=== PATIENT | male | born 1985 | race Caucasian/White ===

== ENCOUNTER 2020-02-17 23:50 | Inpatient (IN) | payer OTHER ==
[~2020-02-17] VITALS: Ht 188 cm; Wt 122.5 kg
[2020-02-17 23:55] VITALS: BP_SYST 119
[2020-02-18] VITALS (7 sets, daily range): BP systolic 117–131
--- NOTE | 2020-02-18 00:05 | NUR ---
Patient to ER bed 2 to gown for evaluation. Side rails up. Report given to November.
--- NOTE | 2020-02-18 00:06 | NUR ---
Patient came to ER. C/O abdominal pain x today. Patient states " abdominal pain one hour ago, no diarrhea or constipation. " Hx Gastritis x 4 years ago A/O,X4, Epigastric pain, pain rate 10/10.
--- NOTE | 2020-02-18 00:09 | NUR ---
ER at bedside examining patient.
[2020-02-18] MEDS ORDERED: MAG-AL HYDROX/SIMETH 30 ML UDC PO ONE (00:15)
[2020-02-18] MEDS ORDERED: LIDOCAINE VISCOUS 2%, 15 ML UDC MM ONE (00:15)
[2020-02-18] MEDS ORDERED: DICYCLOMINE HCL 10 MG/5 ML SOLUTION PO ONE (00:15)
[2020-02-18] MEDS ORDERED: KETOROLAC TROMETHAMINE 60 MG/2 ML VIAL IM ONE (00:15)
--- NOTE | 2020-02-18 01:27 | NUR ---
US at bedside.
[2020-02-18 02:06] LABS: BASOPHILS % (AUTO) 0.2 % (0.0-2.0); EOSINOPHILS # (AUTO) 0.1 K/uL (0.0-0.4); EOSINOPHILS % (AUTO) 1.2 % (0.0-4.0); HEMATOCRIT 44.4 % (36-54); LYMPHOCYTES # (AUTO) 1.1 K/uL (1.0-5.5); LYMPHOCYTES % (AUTO) 10.7 % (20.5-51.5); MEAN CORPUSCULAR HEMOGLOBIN 30 pg (27-31); MEAN CORPUSCULAR HGB CONC 34 % (32-36); MEAN CORPUSCULAR VOLUME 88 fL (79.0-98.0); MONOCYTES # (AUTO) 0.8 K/uL (0.0-1.0); MONOCYTES % (AUTO) 8.4 % (1.7-9.3); NEUTROPHILS % (AUTO) 79.5 % (40.0-70.0); PLATELET COUNT (AUTO) 189 K/uL (130-430); RED BLOOD CELL COUNT(AUTO) 5.02 MIL/uL (4.2-6.2); RED CELL DISTRIBUTION WIDTH 14.2 % (9.0-15.0)
[2020-02-18 02:19] LABS: CALCIUM 9.2 mg/dL (8.4-11.0); CREATININE 1.34 mg/dL (0.55-1.30); POTASSIUM 3.9 mmol/L (3.5-5.1)
[2020-02-18 02:24] LABS: ALBUMIN 3.6 g/dL (3.4-4.8); TOTAL BILIRUBIN 0.4 mg/dL (0.0-1.0)
[2020-02-18] MEDS ORDERED: MORPHINE 4 MG/ML INJ. SYRINGE IVP ONE (02:45)
[2020-02-18] MEDS ORDERED: NACL 0.9% 1,000 ML IV ONE (02:45)
--- NOTE | 2020-02-18 03:33 | NUR ---
# 22 gauge angiocath placed to left hand. Use of asceptic technique. Opsite placed over site. Blood return noted. Blood for lab drawn from site. Flushed with 10 cc of normal saline. No evidence of infiltration noted. Patient tolerated well.
[2020-02-18 03:52] LABS: BILIRUBIN,URINE NEGATIVE (NEGATIVE); BLOOD, URINE NEGATIVE (NEGATIVE); CLARITY/URINE CLEAR (CLEAR); COLOR,URINE YELLOW (YELLOW); GLUCOSE,URINE NEGATIVE (NEGATIVE); KETONES,URINE NEGATIVE (NEGATIVE); LEUKOCYTE ESTERASE ,URINE NEGATIVE (NEGATIVE); NITRITE, URINE NEGATIVE (NEGATIVE); PROTEIN URINE NEGATIVE (NEGATIVE); UROBILINOGEN,URINE 0.2 (0.2-1.0)
--- NOTE | 2020-02-18 04:24 | NUR ---
Patient resting quietly. No acute distress noted. Vital signs within normal range.
[2020-02-18] MEDS ORDERED: D5/0.45 NS 1,000 ML IV ONE (04:30)
--- NOTE | 2020-02-18 06:04 | NUR ---
Patient resting quietly. No acute distress noted. Vital signs within normal range.
--- NOTE | 2020-02-18 06:40 | NUR ---
CONSULTATION PAGED/CALLED Reason for Consultation: [] ACUTE PANCREATITIS Person Who was Notified: [] VIDAL Consulting Physician: [] DR TOLEDO AUDIT CLERKS SUPERVISOR FOR DR GRAY, A Fire Equipment Operator Specialty: [] GI Ordering Physician: [] DR Mary RENAE
--- NOTE | 2020-02-18 07:06 | NUR ---
CONSULT CALLED: CONSULT FOR: DR ISAAC TOLEDO IS RURAL SERVICE ENGINEER REASON FOR CONSULT: ACUTE PANCREATITIS ORDERED BY: DR RENAE SPOKE WITH:
--- NOTE | 2020-02-18 07:07 | NUR ---
Care of patient endorsed to LENIN Amin.
--- NOTE | 2020-02-18 07:13 | NUR ---
Report received from Dianne RN. Pt will bed admitted under the care of Dr. Liz segal/ acute pancreatitis. Pt is in stable condition.
--- NOTE | 2020-02-18 07:21 | NUR ---
Patient will be admitted to care of Dr. Hill. Admitted to Med Surg unit. Will go to room 108-c. Belongings list completed. Complete and up to date summary report printed. SBAR report to be given at bedside with opportunity for questions. Bedside report to be given
--- NOTE | 2020-02-18 07:30 | NUR ---
ADMISSION TO [facility] Patient arrived to [facility] via [facility] from ED. Patient is ambulatory with steady gait from [facility] to [facility]. Patient denies dizziness/lightheadedness with ambulation. Patient is A/Ox4, speaking in full, complete sentences with ease. Patient denies headache/SOB/CP. Patient denies N/V/D at this time. Patient reports that he came to ED for severe upper abdominal pain with bloating, which has subsided since admission with medications provided in ED. Patient denies abdominal pain at this time and states that he feels comfortable. Patient oriented to room and plan of care for the day, which patient agrees. Call light given to patient, side rails up x 2, and patient's phone is within reach. No apparent distress
[2020-02-18 09:12] LABS: CHOLESTEROL 232 mg/dL (<200); HDL CHOLESTEROL 37 mg/dL (>45); LDL CHOLESTEROL 152 mg/dL (<100); TRIGLYCERIDES 232 mg/dL (30-150)
[2020-02-18] MEDS ORDERED: LR 1,000 ML IV SCH (09:30)
--- NOTE | 2020-02-18 12:10 | NUR ---
Bedspread Cutter Hand: RESEARCH TECHNOLOGIST received a referral to see pt. form Dr. Hill. RESEARCH TECHNOLOGIST reviewed all notes. but did not see any social service issues noted from ED , Rn or MD's. RESEARCH TECHNOLOGIST asked Rn Carlie if she knew of any social service needs. She looked in pts. file. There was nothing noted. RESEARCH TECHNOLOGIST introduced self to pt. He was trying to sleep. He was pleasant, maintained eye contact and his answers made sense to RESEARCH TECHNOLOGIST's questions. He was able to confirm demographic info. Pt. went on to say he lives alone, but has family support. He has a fiance. He stated he is currently unemployed since 4-5 months ago due to Covid. He use to work in a warehouse. Pt. stated he did not have any social service needs. RESEARCH TECHNOLOGIST will remain available as needed.
--- NOTE | 2020-02-18 13:50 | NUR ---
BATHROOM PRIVILEGES Patient ambulatory with steady gait and no assistance to restroom. Patient denies dizziness/lightheadedness with ambulation. Patient ambulated safely back to his room after using the restroom. Call light within reach, side rails up x 2.
[2020-02-18] MEDS ORDERED: HYDROcodone/ACETAMIN 5-325 MG TAB (NORCO/ VICODIN) PO PRN (17:00)
[2020-02-18] MEDS ORDERED: ONDANSETRON HCL 4 MG/2 ML VIAL IVP PRN (17:00)
[2020-02-18] MEDS ORDERED: HYDROcodone/ACETAMIN 10-325 MG TAB PO PRN (17:00)
[2020-02-18] MEDS ORDERED: NALOXONE HCL 0.4 MG/ML AMP (NARCAN) IVP PRN ×2 (17:00)
[2020-02-18] MEDS ORDERED: ACETAMINOPHEN 325 MG TABLET PO PRN (17:00)
[2020-02-18] MEDS ORDERED: LORazepam 2 MG/ML VIAL IVP PRN (17:00)
[2020-02-18] MEDS: D5/0.45 NS 1,000 ML IV SCH (17:19)
--- NOTE | 2020-02-18 18:39 | NUR ---
CLOSING NOTE Patient resting in [facility], no apparent distress. Patient's family member delivered patient's computer to hospital. Patient sitting in [facility], working on his laptop. Patient denies abdominal pain at this time. Patient denies N/V/D/Constipation. No complaints. Side rails up x 2, call light within reach. Will handoff to KIMI RN
[2020-02-18] MEDS ORDERED: ATORVASTATIN 20 MG TABLET PO SCH (21:00)
[2020-02-18] MEDS: OMEGA-3/DHA/EPA/FISH OIL 1 GM CAPSULE PO SCH (22:04)
[2020-02-19] MEDS: D5/0.45 NS 1,000 ML IV SCH ×3 (02:21→10:17)
--- NOTE | 2020-02-19 07:30 | NUR ---
Opening Note Report received from KIMI RN. Patient found in [facility], awake and a/ox4, speaking in full, complete sentences with ease. Denies abdominal pain at this time. Denies N/V/D/Constipation. Patient reports improvement in GI symptoms since yesterday. Side rails up x2, call light within reach, NAD at this time.
[2020-02-19 08:06] LABS: HEPATITIS A AB, IgM Negative (Negative); HEPATITIS B CORE AB, IgM Negative (Negative); HEPATITIS B SURFACE AG Negative (Negative)
[2020-02-19 08:16] VITALS: BP_SYST 148
[2020-02-19] MEDS ORDERED: OMEG100036 PO (09:53)
[2020-02-19] MEDS ORDERED: LIP20 PO (09:53)
[2020-02-19] MEDS: OMEGA-3/DHA/EPA/FISH OIL 1 GM CAPSULE PO SCH (10:16)
[2020-02-19 10:17] LABS: BASOPHILS % (AUTO) 0.5 % (0.0-2.0); EOSINOPHILS # (AUTO) 0.2 K/uL (0.0-0.4); EOSINOPHILS % (AUTO) 3.6 % (0.0-4.0); HEMATOCRIT 44.2 % (36-54); HEMOGLOBIN 14.6 g/dL (14.0-18.0); LYMPHOCYTES # (AUTO) 1.2 K/uL (1.0-5.5); LYMPHOCYTES % (AUTO) 18.1 % (20.5-51.5); MEAN CORPUSCULAR HEMOGLOBIN 29 pg (27-31); MEAN CORPUSCULAR HGB CONC 33 % (32-36); MEAN CORPUSCULAR VOLUME 88 fL (79.0-98.0); MONOCYTES # (AUTO) 0.6 K/uL (0.0-1.0); NEUTROPHILS # (AUTO) 4.6 K/uL (1.8-7.7); NEUTROPHILS % (AUTO) 68.8 % (40.0-70.0); PLATELET COUNT (AUTO) 188 K/uL (130-430); RED BLOOD CELL COUNT(AUTO) 5.02 MIL/uL (4.2-6.2); RED CELL DISTRIBUTION WIDTH 14.1 % (9.0-15.0); WHITE BLOOD COUNT (AUTO) 6.7 K/uL (4.8-10.8)
[2020-02-19 10:35] LABS: ALBUMIN 3.2 g/dL (3.4-4.8); CALCIUM 8.8 mg/dL (8.4-11.0); CREATININE 1.12 mg/dL (0.55-1.30); POTASSIUM 3.9 mmol/L (3.5-5.1); TOTAL BILIRUBIN 0.7 mg/dL (0.0-1.0)
[2020-02-19 12:00] VITALS: BP_SYST 134
--- NOTE | 2020-02-19 12:00 | NUR ---
Lunch Patient advanced to Low Fat Diet and reports no pain after eating food. Denies N/V/D/Constipation. Since patient is tolerating food, he is clear for discharge per MD Hill.
[2020-02-19 13:46] VITALS: BP_SYST 136
--- NOTE | 2020-02-19 14:15 | NUR ---
Discharge Patient A/Ox4, speaking in full, complete sentences with ease. Patient denies abdominal pain at this time. Denies N/V/D as well. Discharge instructions provided to patient along with paper prescription. Patient verbalizes understanding of discharge instructions including follow up with MD Hill within 1 week. Patient's peripheral IV discontinued. Patient ambulatory with steady gait with all of his belongings in his possession out of hospital. Patient being picked up by his fiance.
== END 2020-02-19 14:20 | disposition home or self-care (01) | DRG 282 ==
LOC: SED 23:50 → SMU 02-18 04:16
PROVIDERS: ADMIT Preventive Medicine Preventive Medicine/Occupational Environmental Medicine; ATTEND Preventive Medicine Preventive Medicine/Occupational Environmental Medicine
DX: K85.90 Acute pancreatitis without necrosis or infection, unspecified (principal); E78.2 Mixed hyperlipidemia; R74.0 Nonspecific elevation of levels of transaminase and lactic acid dehydrogenase [LDH]; N17.9 Acute kidney failure, unspecified; N18.9 Chronic kidney disease, unspecified; Z87.74 Personal history of (corrected) congenital malformations of heart and circulatory system
CPT/HCPCS: 36415; 76700-TC; 80053; 80061; 80074; 81003; 82150-TC; 82787; 83690-TC; 85025; 93005; 96372; 96374; 96375; 99285; J1885; J2001; J2270